=== PATIENT | male | born 1970 | race Caucasian/White ===

== ENCOUNTER 2020-08-21 21:03 | Emergency (ER) | payer BC ==
[~2020-08-21] VITALS: Ht 185.4 cm; Wt 68.0 kg
[2020-08-21 21:11] VITALS: BP 114/78
== END 2020-08-21 22:24 | disposition home or self-care (01) ==
LOC: ER 21:08
DX: B33.8 Other specified viral diseases (principal); R50.9 Fever, unspecified; R43.9 Unspecified disturbances of smell and taste; R53.83 Other fatigue; R07.81 Pleurodynia; R10.9 Unspecified abdominal pain; Z20.822 Contact with and (suspected) exposure to COVID-19
CPT/HCPCS: 87426; 99283; C9803